=== PATIENT | female | born 1985 | race Caucasian/White ===

== ENCOUNTER → 2022-07-09 09:00 | Outpatient (CLI) | payer BC, SELFPAY ==
--- NOTE | ~2022-07-09 | US_ITS ---
Limited Abdominal Sonogram: Real-time sonographic imaging of the right upper quadrant was performed. Clinical History: Epigastric pain Findings: The liver appears normal with no evidence of mass lesion or bile duct dilatation. Main por edna vein demonstrates normal direction of flow. The gallbladder is partially distended, and contains multiple echogenic gallstones. The common bile duct measures 2 mm. The visualized pancreas, aorta, a nd IVC are unremarkable. Right kidney measures 9.3 cm in length, without evidence for hydronephrosis. Impression: Cholelithiasis. Reviewed, dictated and finalized at location M. Impression: Cholelithiasis.
== END ==
PROVIDERS: PCP Nurse Practitioner Family; Visit Provider Nurse Practitioner Family
DX: K80.20 Calculus of gallbladder without cholecystitis without obstruction (principal)
CPT/HCPCS: 76705

== ENCOUNTER 2022-08-11 00:48 | Day surgery (SDC) | payer BC, SELFPAY ==
[2022-08-10 08:55] VITALS: BMI 30.9
--- NOTE | 2022-08-10 08:58 | PC.NURSE ---
Addendum entered by Cheryl Perdomo RN 08/10/22 09:17: PT AWARE OF HIBICLENS SHOWER AM OF SURGERY Original Note: Report to the Outpatient Waiting Room, entrance under the green pavilion located off [facility], at time _1130 on date _08/11/22 . Planned Procedure Time: _1 :30 PM . Time changes happen often and if your time is changed the preop area will call you the afternoon before. - You and your visitor will be asked to self-screen and do not enter if you have any COVID symptoms. - A mask is optional within the hospital at this time. Patients may have clear liquids (water, carbonated beverages, clear teas, apple juice) until 3 hours prior to surgery (1030 AM) with a maximum of 20 ounces. - No food from midnight until time of surgery - Infants may have breast milk until 4 hours before surgery, infant formula 6 hours prior to surgery. - Children will be allowed to drink immediately following surgery. If applicable, please bring a bottle or sippy cup to assist with drinking. Juice, water, soda, and popsicles are readily available. For infants on formula, please bring formula the day of surgery. Pacifiers are allowed. Take the following medications with a SIP of water the morning of surgery: __SERTRALINE, & ALPRAZOLAM IF NEEDED DO NOT STOP ANY OF YOUR OTHER PRESCRIPTION MEDICATIONS PRIOR TO SURGERY ?EXCEPT THE FOLLOWING Medications to discontinue per physician N/A Date to take last dose Please no make-up, nail macedonian, hairspray, perfume, deodorant, or body powder the day of surgery. No jewelry (including any body piercings) or valuables the day of surgery, leave them at home. Please take a shower or bath the night before, or the morning of, surgery with an antibacterial soap. Wear comfortable, loose fitting clothing. Children are encouraged to wear pajamas. - Jewelry must be removed prior to entering the operating room. Rings and piercings that are not removed may be cut off. - The hospital will not accept responsibility for valuables. - Please leave all valuables, including medications, at home the day of surgery. If you are going home after surgery, a licensed taxi cab driver must drive you home. - NO public transportation without another adult if you receive anesthesia. - We recommend that an adult stay with you for 24 hours following discharge. - We also recommend that you do not drive, make important decision, drink alcoholic beverages, or take any drugs that were not prescribed by your health care provider for at least 24 hours after your discharge time. For Pediatric surgeries, we recommend two adults accompany the child home. Follow any additional instructions given to you from your surgeon. If you or anyone in your household have experienced Covid symptoms in the past week, please notify your surgeon or the nurse liaison at the phone number below for possible testing. Telephone instructions given to ___PATIENT and asked if any additional questions and then verbalized understanding. Patient advised to call surgeon office or pre surgery nurse liaison [phone] if any additional questions.
[2022-08-11] VITALS (12 sets, daily range): BP systolic 104–132; BP diastolic 49–96; PULSE 69–118; RESP 12–20; TEMP 36.2–37.1; O2SAT 97–100
--- NOTE | 2022-08-11 12:34 | WPDHPUPDATE1 ---
History and Physical Update Update Date/Time: 08/11/22 12:34 History and Physical has been reviewed, including an updated exam of the patient. There are NO changes in the patient's condition. Risks, benefits, and alternatives have been discussed and questions answered. Patient agrees to proceed with procedure.
--- NOTE | 2022-08-11 12:38 | P.PNAN_ITS ---
Anes - Initial Pre Proc Eval Procedure: Operation Date: 08/11/22 13:30 Proposed Procedures p Laparoscopic Cholecystectomy - Eldon Tinoco DO Date/Time: 08/11/22 12:38 Surgeon: Eldon Tinoco DO Pre Op Diagnosis: symp cholelithiasis Patient Data Age: 37 Gender: F Height: 1.57 m Weight: 76.81 kg Allergies Allergy/AdvReac Type Severity Reaction Status Date / Time hydromorphone Allergy Intermediate hives Verified 08/10/22 08:44 Home Medications Medication Instructions Recorded Confirmed Type alprazolam 0.25 mg tablet (Xanax) 0.25 mg PO QHS PRN ANEXITY 07/28/22 08/10/22 History semaglutide 0.25 mg or 0.5 mg (2 0.25 mg subcut WEEKLY 07/28/22 08/10/22 History mg/3 mL) subcutaneous pen injector (Ozempic) sertraline 50 mg tablet 50 mg PO DAILY 07/28/22 08/10/22 History Patient hx anesthesia problems: none Family hx anesthesia problems: none Results Review: All pre-operative results and documents have been reviewed as part of the pre- operative evaluation. 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 Informed Consent: The patient's anesthetic plan and its attendant risks and benefits were discussed with the patient/family/POA. Questions were solicited and answers provided to the satisfaction of the patient/family/POA.
[2022-08-11] MEDS: ACETAMINOPHEN 500 MG TABLET 1000 MG PO (12:55)
[2022-08-11] MEDS: KETOROLAC 15 MG/ML VIAL (*BKC) IV PUSH (12:58)
[2022-08-11 13:00] LABS: Alanine Aminotransferase 18 U/L (6-35); Albumin Level 4.8 g/dL (3.5-5.1); Alkaline Phosphatase 61 U/L (38-126); Amylase 67 U/L (30-110); Aspartate Amino Transferase 29 U/L (14-36); Bilirubin,Total 0.7 mg/dL (0.2-1.3); Lipase 77 U/L (23-300)
[2022-08-11] MEDS: LACTATED RINGERS 1,000 ML 30 ML IV CONT ×2 (13:02→14:58)
[2022-08-11] MEDS: ceFAZolin 2 GM/D5W 50 ML 2 GM/50 ML BAG IVPB (13:08)
[2022-08-11] MEDS: BUPIVACAINE/EPINEPHRINE 0.25% 50 ML VIAL 30 ML INFILTRATE (13:35)
--- NOTE | 2022-08-11 14:02 | W.PM.PROC2 ---
Procedure Note - Detailed Date of Procedure 08/11/22 Pre-op Diagnosis symptomatic cholelithiasis Post-op Diagnosis Same Procedure Performed Laparoscopic Cholecystectomy Surgeon Eldon Tinoco, DO Anesthesia General and Local (0.5% bupivacaine) Indications This is a 37-year-old woman who presented with epigastric abdominal pain that started about 1 year ago. She has had several episodes and these are becoming more frequent. She underwent ultrasound which showed evidence of cholelithiasis. Discussions were made with the patient about treatment options and decision was made to proceed with laparoscopic cholecystectomy, possible open. Findings Laparoscopic cholecystectomy was performed. The gallbladder had a few pericholecystic adhesions but was otherwise normal appearing. The cystic duct was normal in size. There were several small to medium-sized gallstones within the gallbladder. The gallbladder was removed and sent to the lab for pathology. No other intra-abdominal abnormalities were noted. Description of Procedure Procedure as well as risks, benefits, and alternatives were discussed with patient. Written consent was obtained and placed in chart prior to procedure. The patient was brought back to surgical suite. Patient was placed in supine position on operating table. Time-out was done to confirm patient and procedure. Patient was then intubated by the anesthesia department. Abdomen was prepped and draped in sterile fashion using chlorhexidine prep. 0.5% bupivacaine with epinephrine was infiltrated at each site of incision. A 5 millimeter incision was made near the umbilicus, and a 5 millimeter Optiview trocar was advanced through the abdominal layers under direct visualization. Once inside the abdominal cavity, carbon dioxide was insufflated to create a pneumoperitoneum. The camera was inserted and the abdomen was inspected. No immediate abnormalities were identified. The patient was placed in reverse Trendelenburg position and rotated slightly to the left. An 11 millimeter incision was made in the subxiphoid region, and an 11 millimeter trocar was inserted under direct visualization. Two 5 millimeter incisions were made in the right upper quadrant, and two 5 millimeter trocars were inserted under direct visualization. The gallbladder was identified and grasped at the fundus and retracted superiorly. It was then grasped at the infundibulum retracted laterally. Careful dissection around the neck of the gallbladder was performed using blunt dissection with a [place] grasper and hook electrocautery. The cystic duct was identified, and a window was created behind it. The cystic artery was also identified and a window was created behind it. The critical view of safety was identified, visualizing the cystic duct running directly into the neck of the gallbladder, and the cystic artery running directly into the wall of the gallbladder. A 5 millimeter clip senior staff specialized employment was then used to place 2 clips proximally and 1 clip distally on both the cystic duct and cystic artery. They were then both transected using endoscopic scissors. Once safely away from the anirudh hepatitis, the gallbladder was dissected free from the liver bed using hook electrocautery. Hemostasis was achieved along the way. The gallbladder was removed completely and then removed through the subxiphoid port. The liver bed was then inspected. Hemostasis appeared adequate, and our clips appeared secure. The area was gently irrigated with sterile saline. No other abnormalities were seen. The patient was flattened out in bed, and 1 final inspection was made around the abdominal cavity. The subxiphoid port was removed, and a Pavan Amelie cone was used to approximate the fascia with an 0-Vicryl simple interrupted suture. The remaining ports were then removed under direct visualization, the camera was removed, and the pneumoperitoneum was released. The skin of the incisions was approxi
[2022-08-11] MEDS: ONDANSETRON INJ 4 MG/2 ML VIAL IV PUSH (14:23)
[2022-08-11] MEDS: fentaNYL CITRATE INJ (*CRX) 100 MCG/2 ML VIAL 25 MCG IV PUSH ×3 (14:30→15:07)
[2022-08-11] MEDS: SCOPOLAMINE 1.5 MG PATCH TRANSDERM (16:03)
[2022-08-11] MEDS: diphenhydrAMINE HCl INJ 50 MG/ML VIAL 25 MG IV PUSH (16:07)
[2022-08-11] MEDS: oxyCODONE HCL (*CRX) 5 MG TAB IR PO (17:03)
== END 2022-08-11 18:00 | disposition home or self-care (01) ==
PROVIDERS: PCP Nurse Practitioner Family; Visit Provider Surgery
PROC: 0FT44ZZ Resection of Gallbladder, Percutaneous Endoscopic Approach (ICD-10-PCS; CPT 47562; principal; 2022-08-11 13:30)
DX: K80.10 Calculus of gallbladder with chronic cholecystitis without obstruction (principal); F41.9 Anxiety disorder, unspecified; Z79.899 Other long term (current) drug therapy; E66.9 Obesity, unspecified; Z68.31 Body mass index [BMI] 31.0-31.9, adult
CPT/HCPCS: 47562; 36415; 80076; 82150; 83690; 86850; 86900; 86901; 88304; A9270; J0690; J1100; J1200; J1885; J2250; J2405; J2704; J2710; J3010; J7030; J7120

== ENCOUNTER 2023-05-03 17:48 | Observation (INO) | payer BC, SELFPAY ==
--- NOTE | 2023-05-03 20:26 | OBADM ---
This patient, Carol Shepard, admitted to the OB room Labor/Delivery/Recovery 106 for observation. Patient/family oriented to hospital policies and general routines including ID bracelet, bed and alarms, visiting hours, pain management, procedures, bathroom and other care routines, personal items, smoking policy, room service/diet, and visiting hours. Patient/Family are encouraged to report perceived risks to care and to ask questions if they do not understand what they are told or what they should do.
--- NOTE | 2023-05-04 07:11 | PM.OBTRLD ---
OB - Triage/Final Diagnosis Visit Information Date of evaluation: 05/03/23 Reason for evaluation: threatened labor Comments/Additional reasons for admission: I have assessed the risk for this patient, Carol Shepard, and determined that she would benefit from observation care.
== END 2023-05-03 20:46 | disposition home or self-care (01) ==
PROVIDERS: Admitting Provider Obstetrics & Gynecology; PCP Nurse Practitioner Family; Visit Provider Obstetrics & Gynecology
DX: O47.1 False labor at or after 37 completed weeks of gestation (principal); Z3A.37 37 weeks gestation of pregnancy
CPT/HCPCS: G0378; G0379

== ENCOUNTER 2023-05-04 09:28 | Outpatient (CLI) | payer BC, SELFPAY ==
[2023-05-04 09:46] VITALS: BP 135/82; PULSE 93
[2023-05-04 09:57] LABS: Basophils Percent Auto 0.2 % (0.2-1.2); Eosinophils Absolute Auto 0.1 K/mm3 (0-0.3); Hemoglobin 9.3 g/dL (12.0-15.0); Immature Granulocyte Absolute 0.06 K/mm3 (0.00-0.031); Immature Granulocyte Percent A 0.5 % (0-0.5); Lymphocytes Absolute Auto 1.79 K/mm3 (0.9-3.2); Lymphocytes Percent Auto 15.7 % (18.3-44.2); Mean Corpuscular Hemoglobin 23.6 pg (26-34); Mean Corpuscular Volume 78.7 fl (80-100); Mean Platelet Volume 10.7 fl (7.4-10.4); Monocytes Absolute Auto 0.8 K/mm3 (0.1-0.6); Monocytes Percent Auto 6.8 % (2.6-8.5); Neutrophils Absolute Auto 8.6 K/mm3 (1.3-6.7); Neutrophils Percent Auto 75.8 % (45.5-73.1); Platelet Count Result 322 k/mm3 (150-375); Red Blood Count 3.94 M/mm3 (4.2-5.4); Red Cell Distribution Width 15.1 % (11.5-14.5); White Blood Count 11.4 K/mm3 (4.5-10.0)
[2023-05-04 10:01] VITALS: BP 126/82; PULSE 82
[2023-05-04 10:07] LABS: Alanine Aminotransferase 14 U/L (6-35); Albumin Level 3.4 g/dL (3.5-5.1); Alkaline Phosphatase 123 U/L (38-126); Anion Gap 5 mmol/L (8-16); Aspartate Amino Transferase 19 U/L (14-36); Bilirubin,Total 0.3 mg/dL (0.2-1.3); Blood Urea Nitrogen 11 mg/dL (7-17); Calcium 9.1 mg/dL (8.4-10.2); Carbon Dioxide 20 mmol/L (22-30); Chloride 110 mmol/L (98-107); Estimated Glomerular Filt Rate > 60; Glucose 89 mg/dL (65-110); Potassium 4.1 mmol/L (3.4-5.0); Sodium 135 mmol/L (137-145); Uric Acid 4.9 mg/dL (2.5-7.5)
[2023-05-04 10:25] VITALS: BP 135/75; PULSE 84
[2023-05-04 10:31] VITALS: BP 130/80; PULSE 87
[2023-05-04 10:49] LABS: Appearance Urine Cloudy (Clear); Bacteria Urine None Seen /hpf; Bilirubin Urine Negative (Negative); Blood Urine Negative (Negative); Color Urine Yellow (Yellow); Glucose Urine UA Negative (Negative); Ketones Urine Trace mg/dL (Negative); Leukocyte Esterase Ur Trace LEU/UL (Negative); Nitrate Urine Negative (Negative); Non Pathogenic Casts 0-2; Protein Urine 1+ mg/dL (Negative); RBC Urine 0-2 /hpf (0-2); Specific Grav Ur 1.022 (1.001-1.035); Squamous Epithelial Cell Urine Occasional /hpf (Few); WBC Urine 0-5 /hpf; pH Urine 6.5 (5.0-9.0)
[2023-05-04 10:53] LABS: Add Urine Microscopic? YES
[2023-05-04 11:22] LABS: Creatinine Urine 213.7 mg/dL; Total Protein Urine Random 28 mg/dL; Ur Ttl Prot Creatinine Ratio 0.13 mg/mg (0-0.20)
--- NOTE | 2023-05-04 11:27 | PC.NURSE ---
Dr Leong notified of lab results.OK to nv home and patient to be scheduled for IOL next wednesday.
--- NOTE | 2023-05-04 11:30 | PC.NURSE ---
Patient informed of IOL for next week, patient very upset and states that she is supposed to be induced for polyhydramnios tomorrow. Patient requesting to talk to Delia Leong. Dr Leong called and clarified orders regarding IOL. Orders for MIL for Poly received for tomorrow at 0400.
[2023-05-04 11:35] VITALS: BP 135/82; PULSE 89
== END 2023-05-04 11:35 | disposition home or self-care (01) ==
LOC: ANHOBOP 09:32 → ANHOBPP 09:32
PROVIDERS: PCP Nurse Practitioner Family; Visit Provider Obstetrics & Gynecology
DX: O13.9 Gestational [pregnancy-induced] hypertension without significant proteinuria, unspecified trimester (principal); O36.8190 Decreased fetal movements, unspecified trimester, not applicable or unspecified; Z3A.00 Weeks of gestation of pregnancy not specified
CPT/HCPCS: 36415; 59025; 80053; 81001; 82570; 84156; 84550; 85025; 99199

== ENCOUNTER 2023-05-05 03:55 | Inpatient (IN) | payer BC, SELFPAY ==
[2023-05-05] VITALS (80 sets, daily range): BP systolic 100–170; BP diastolic 57–109; PULSE 74–115; RESP 16; TEMP 37.2–37.6; O2SAT 94–100; BMI 39.5
--- NOTE | 2023-05-05 04:00 | LDADM ---
This patient, Carol Shepard, was admitted to Labor/Delivery/Recovery 102 on 05/05/23 at 03:55. Plans for labor, pain management and were discussed with patient. Patient/family oriented to hospital policies and general routines including ID bracelet, bed and alarms, visiting hours, pain management, procedures, bathroom and other care routines, personal items, smoking policy, room service/diet and guest tray routines, infant security routines, and visiting hours. Patient/Family are encouraged to report perceived risks to care and to ask questions if they do not understand what they are told or what they should do. See OBIX for further documentation.
--- NOTE | 2023-05-05 06:09 | PM.IMHP ---
H&P: HPI History of Present Illness Date/Time: 05/05/23 06:09 Chief Complaint: Thirty-eight weeks gestation with polyhydramnios Narrative: 37-year-old 3 para 2 last menstrual period puts her at 38 weeks gestation with polyhydramnios. She is advanced cervical dilatation and spontaneous vaginal delivery expected. 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[employer] Spiritual care concerns: No Meds Home Medications and Allergies Home Medications Medication Instructions Recorded Confirmed Type alprazolam 0.25 mg tablet (Xanax) 0.25 mg PO QHS PRN ANEXITY 07/28/22 04/19/23 History sertraline 50 mg tablet 75 mg PO DAILY 07/28/22 04/19/23 History Allergies Allergy/AdvReac Type Severity Reaction Status Date / Time hydromorphone Allergy Intermediate hives Verified 08/28/22 13:40 Pertussis Vaccines Allergy Swelling Verified 04/19/23 12:40 Exam Const: General: cooperative, healthy appearing and comfortable Nutritional Appearance: average body habitus Orientation/consciousness: oriented to person, oriented to place and oriented to time Resp: Effort & Inspection: normal respiratory effort Cardio: Rate: regular rate Rhythm: regular rhythm Heart sounds: S1 normal heart sound present and S2 normal heart sound present GI: Inspection: normal to inspection ( gravid soft uterus) : External Female Exam: normal external appearance Speculum Exam - Vagina: normal appearance of the vagina Speculum Exam - Cervix: normal appearance of the cervix ( cervix 4cm. FHTs reassuring will rupture membrane IV is in) Assessment and Plan Assessment and plan (1) Term : Code(s): Z34.90 - Encounter for supervision of normal , unspecified, unspecified trimester Status: Acute (2) Polyhydramnios: Code(s): O40.9XX0 - Polyhydramnios, unspecified trimester, not applicable or unspecified Status: Acute Plan medical induction of labor. Spontaneous vaginal delivery is expected. She is an epidural candidate
[2023-05-05 06:30] LABS: Basophils Percent Auto 0.3 % (0.2-1.2); Eosinophils Absolute Auto 0.2 K/mm3 (0-0.3); Eosinophils Percent Auto 1.4 % (0-4.4); Hematocrit 32.5 % (37.0-47.0); Hemoglobin 9.8 g/dL (12.0-15.0); Immature Granulocyte Absolute 0.08 K/mm3 (0.00-0.031); Immature Granulocyte Percent A 0.7 % (0-0.5); Lymphocytes Absolute Auto 1.87 K/mm3 (0.9-3.2); Lymphocytes Percent Auto 17.3 % (18.3-44.2); Mean Corpuscular HGB Conc 30.2 g/dl (32-36); Mean Corpuscular Hemoglobin 23.6 pg (26-34); Mean Corpuscular Volume 78.3 fl (80-100); Mean Platelet Volume 10.9 fl (7.4-10.4); Monocytes Absolute Auto 0.6 K/mm3 (0.1-0.6); Monocytes Percent Auto 5.3 % (2.6-8.5); Neutrophils Absolute Auto 8.1 K/mm3 (1.3-6.7); Platelet Count Result 306 k/mm3 (150-375); Red Blood Count 4.15 M/mm3 (4.2-5.4); Red Cell Distribution Width 15.2 % (11.5-14.5); White Blood Count 10.8 K/mm3 (4.5-10.0)
[2023-05-05] MEDS: LACTATED RINGERS 1,000 ML 125 ML IV CONT ×2 (06:33→07:46)
[2023-05-05] MEDS: OXYTOCIN 30 UNITS/NS 500 ML 30 UNITS/500 ML BAG IV CONT (06:33)
--- NOTE | 2023-05-05 06:46 | PM.OBPNLAB ---
Pain Control Date/time seen: 05/05/23 06:46 Pain control: tolerating well Pelvic Exam Dilation (cm): 4 Effacement (%): 80 station: -2 Amniotic membrane status: Ruptured Contractions Monitor mode: Internal
--- NOTE | 2023-05-05 07:09 | WPDANESEPP ---
Anes - Eval Pre Procedure Procedure: Labor epidural Date/Time: 05/05/23 07:09 Surgeon: Sudheer Krishnan Preop Diagnosis: Pain during labor Pre Op Diagnosis: IOL Patient Data Age: 37 Gender: F Height: 1.57 m Weight: 98 kg Last Vital Signs Pulse 98 05/05/23 07:00 BP 135/79 05/05/23 07:00 Allergies Allergy/AdvReac Type Severity Reaction Status Date / Time hydromorphone Allergy Intermediate hives Verified 08/28/22 13:40 Pertussis Vaccines Allergy Swelling Verified 04/19/23 12:40 Home Medications Medication Instructions Recorded Confirmed Type sertraline 50 mg tablet 75 mg PO DAILY 07/28/22 04/19/23 History Laboratory Tests 05/05/23 06:22 WBC 10.8 H K/mm3 (4.5-10.0) RBC 4.15 L M/mm3 (4.2-5.4) Hgb 9.8 L g/dL (12.0-15.0) Hct 32.5 L % (37.0-47.0) MCV 78.3 L fl (80-100) MCH 23.6 L pg (26-34) MCHC 30.2 L g/dl (32-36) RDW 15.2 H % (11.5-14.5) Plt Count 306 k/mm3 (150-375) MPV 10.9 H fl (7.4-10.4) Immature Gran % (Auto) 0.7 H % (0-0.5) Neut % (Auto) 75.0 H % (45.5-73.1) Lymph % (Auto) 17.3 L % (18.3-44.2) [place] % (Auto) 5.3 % (2.6-8.5) Eos % (Auto) 1.4 % (0-4.4) Baso % (Auto) 0.3 % (0.2-1.2) Lymph # (Auto) 1.87 K/mm3 (0.9-3.2) [place] # (Auto) 0.6 K/mm3 (0.1-0.6) Eos # (Auto) 0.2 K/mm3 (0-0.3) Baso # (Auto) 0.0 K/mm3 (0.0-0.1) Abs Immat Gran (auto) 0.08 H K/mm3 (0.00-0.031) Absolute Neuts (auto) 8.1 H K/mm3 (1.3-6.7) Absolute Nucleated RBC 0.000 K/mm3 (0.0-0.012) Nucleated RBC % 0.0 % (0.0-0.2) RPR Pending HIV 1&2 Ab/P24 Ag 4thGn Pending Blood Type A Positive Antibody Screen Pending Patient hx anesthesia problems: none Family hx anesthesia problems: none Results Review: All pre-operative results and documents have been reviewed as part of the pre-operative evaluation. [facility] Past Medical History Medical History Anxiety Surgical History Surgical History History of D&C Hx laparoscopic cholecystectomy 08/11/22 Family History Family History Father Hypertension Mother Lymphoma Grandparent Cerebrovascular accident Social History Social History Smoking status: Never smoker Second hand tobacco smoke exposure: No Alcohol intake: never Substance use: never Substance use type: does not use Do You Feel Safe in your Home?: No Lack of Transportation: No Lack of Food: Never True Current Housing: I Have Housing Concerned About Future Housing: No Difficulty Paying Gas/Electric Bills: No Difficulty Paying for Meds: No Currently Unemployed: No Education: Trade/Vocational Certificate Difficulty w/ Childcare or Family Care: No Living arrangements: with family Occupation/Education: occupation 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
[2023-05-05 07:19] LABS: HIV 1/2 Ab P24 Ag Result Negative (Negative)
--- NOTE | 2023-05-05 10:31 | P.DS_ITS ---
DS: Admitting Diagnosis Discharge Date 05/06/2023 Admitting Diagnosis Term /polyhydramnios DS: Discharge Diagnosis Discharge Diagnosis (1) Polyhydramnios: Code(s): O40.9XX0 - Polyhydramnios, unspecified trimester, not applicable or unspecified Status: Acute (2) Term : Code(s): Z34.90 - Encounter for supervision of normal , unspecified, unspecified trimester Status: Acute DS: Summary Hospital Course Reason for hospitalization: patient was admitted for induction of labor on 05/05/2023 and underwent spontaneous vaginal delivery with epidural anesthesia Hospital Course: her hospital course was unremarkable. She remained afebrile. She was up, voiding without difficulty, eating regular diet, ambulating, generally without complaints. Time Spent with Patient Time attestation: Total time spent providing and/or coordinating discharge services: Exam Const: General: cooperative, healthy appearing and comfortable Nutritional Appearance: average body habitus Orientation/consciousness: oriented to person, oriented to place and oriented to time Resp: Effort & Inspection: normal respiratory effort Cardio: Rate: regular rate Rhythm: regular rhythm Heart sounds: S1 normal heart sound present and S2 normal heart sound present GI: Inspection: normal to inspection ( Fundus firm below umbilicus) DS: Data Data Completed and Pending Labs on day of discharge: Labs from last 24 hours 05/05/23 06:22 WBC 10.8 H RBC 4.15 L Hgb 9.8 L Hct 32.5 L MCV 78.3 L MCH 23.6 L MCHC 30.2 L RDW 15.2 H Plt Count 306 MPV 10.9 H Immature Gran % (Auto) 0.7 H Neut % (Auto) 75.0 H Lymph % (Auto) 17.3 L [place] % (Auto) 5.3 Eos % (Auto) 1.4 Baso % (Auto) 0.3 Lymph # (Auto) 1.87 [place] # (Auto) 0.6 Eos # (Auto) 0.2 Baso # (Auto) 0.0 Abs Immat Gran (auto) 0.08 H Absolute Neuts (auto) 8.1 H Absolute Nucleated RBC 0.000 Nucleated RBC % 0.0 RPR Pending HIV 1&2 Ab/P24 Ag 4thGn Negative Blood Type A Positive Antibody Screen Negative Discharge Plan Discharge Attending physician on discharge: Manjeet Sanchez Discharging Clinician: Manjeet Sanchez Patient Disposition: Home, Self-Care Activity: may shower and no straining Diet: heart healthy Wound Care Instructions: follow printed instructions Patient Instructions: Antibiotic Form Stand Alone Forms: General Discharge Information Follow-up/Referrals: Manjeet Sanchez MD [Physician] - Discharge Medications: No Action sertraline 50 mg tablet 75 mg PO DAILY Date of admission: 05/05/23 03:55 Primary Care Provider: Letty,Kelly Eric Admitting Provider: Manjeet Sanchez Attending physician on admission: Manjeet Sanchez Condition: Stable
--- NOTE | 2023-05-05 10:33 | PM.OBPRVD ---
OB - Vaginal Delivery Note Procedure Delivery date: 05/05/23 Events: Polyhydramnios Induction method: AROM Delivery augmentation: Pitocin Delivery monitor: External FHT and Internal Uterine Episiotomy description: None Laceration Description: Perineal - 1st Degree Quantitative Blood Loss (ml): 61 Anesthesia type: Epidural Disposition: Floor Complications: No immediate complications Baby Date of : 05/05/23 Time of : 10:20 Weeks of gestation at delivery: 38 Infant gender: Male presentation: vertex position: Right Occiput Anterior Placenta delivery description: Spontaneous Cord Vessel Description: 3 Vessels score one minute: 8 score five minutes: 9
[2023-05-05] MEDS: OXYTOCIN 30 UNITS/NS 500 ML 30 UNITS/500 ML BAG 125 UNITS IV CONT (10:57)
[2023-05-05 11:42] LABS: Rapid Plasma Reagin Non-Reactive (NonReactive)
[2023-05-05] MEDS: WITCH HAZEL 40 PADS 1 PAD TOPICAL ×2 (13:06→21:18)
[2023-05-05] MEDS: BENZOCAINE 20% AER SPR (*SP) 56 GM CAN 1 SPRAY TOPICAL (13:07)
--- NOTE | 2023-05-05 15:03 | PC.NURSE ---
Addendum entered by Elena Ash RN 05/05/23 15:11: Reviewed calling for assistance for any concerns. Discussed infants positioning, size, what infants appearance, actions, and sounds when there is difficulty breathing. Parents state infant has been checked out and he is fine. After stooled copious meconium and was placed upright on mothers chest/breast [id number] there was no grunting noise. remained stable with no signs of distress with exception to when he was scrunched up on the boppy. Reported to Primary RN. Original Note: [id number] Upon entering the room big sister is holding on a boppy pillow. Infant is grunting. Repositioned with sister and the infant became quiet, then started making grunting noise again. There is spit at the lips wiped away and is placed upright onto big sister's shoulder and demonstrated how to pat for relief of gas. Introductions were made once patient came out of the restroom, then consulted with patient to assess needs related to . Discussed with mother her?plans to feed?her infant, the?experience so far and she breastfed on both breast downstairs without pain for about 10 minutes on each side. has had two voids and mother states had a smear of stool downstairs. RN LC demonstrated changing a diaper to the family and infant stooled copious amounts of meconium and voided again. (3 voids and copious stool since delivery). Encouraged understanding of the benefits of skin to skin (demonstrating unwrapping infant and placing upright on her chest), stimulating with massage touch, changing positions to encourage wakefulness, how to watch for early feeding cues, responsive feeding, feeding on demand (aiming for 8-12 times in 24 hours, about every 2-3 hours), milk production, building/maintaining a milk supply, duration of feeding, signs of adequate intake/output and how to record on the feeding sheet. mother is experience with . We reviewed the stage of stimulating to wake to feed, responsive feeding, what feeding cues, swallowing looks like with no pain with the latch, and bringing infant close to her body [id number] with a big, open, wide gape. Resources provided for inpatient and outpatient services with the feeding sheet and name written on the communication board. Parents voiced understanding of information and will call if there is a request for assistance. Reported to the Primary RN.
[2023-05-05] MEDS: ACETAMINOPHEN 325 MG TABLET 650 MG PO ×2 (15:07→21:17)
[2023-05-05] MEDS: DOCUSATE SODIUM 100 MG CAPSULE PO (15:07)
[2023-05-05] MEDS: IBUPROFEN 600 MG TABLET PO ×2 (15:07→21:18)
[2023-05-05] MEDS: SIMETHICONE 80 MG TAB.CHEW PO (21:18)
--- NOTE | 2023-05-06 05:41 | P.PNOB_ITS ---
OB - PN: Subj Subjective Date/time seen: 05/06/23 05:41 Patient comments: no complaints and pain well controlled baby status: doing well and nursing well OB - PN: Obj Data Labs 05/05/23 06:22 Labs: Laboratory Results - last 24 hr 05/05/23 06:22 WBC 10.8 H RBC 4.15 L Hgb 9.8 L Hct 32.5 L MCV 78.3 L MCH 23.6 L MCHC 30.2 L RDW 15.2 H Plt Count 306 MPV 10.9 H Immature Gran % (Auto) 0.7 H Neut % (Auto) 75.0 H Lymph % (Auto) 17.3 L [place] % (Auto) 5.3 Eos % (Auto) 1.4 Baso % (Auto) 0.3 Lymph # (Auto) 1.87 [place] # (Auto) 0.6 Eos # (Auto) 0.2 Baso # (Auto) 0.0 Abs Immat Gran (auto) 0.08 H Absolute Neuts (auto) 8.1 H Absolute Nucleated RBC 0.000 Nucleated RBC % 0.0 RPR Non-reactive HIV 1&2 Ab/P24 Ag 4thGn Negative Blood Type A Positive Antibody Screen Negative OB - PN A/P Plan day: 1 Plan: routine care, discharge home and follow up 6 weeks Time Spent With Patient Time: Total time spent is greater than 50% in coordination of care (as documented) at patient's floor/unit and/or counseling patient: Time with patient: less than 15 minutes Exam Const: General: cooperative, healthy appearing and comfortable Nutritional Appearance: average body habitus Orientation/consciousness: oriented to person, oriented to place and oriented to time HENMT: Head: normal to inspection Resp: Effort & Inspection: normal respiratory effort GI: Inspection: normal to inspection
[2023-05-06 05:54] LABS: Hematocrit 28.6 % (37.0-47.0); Hemoglobin 8.5 g/dL (12.0-15.0)
[2023-05-06] MEDS: POLYSACCHARIDE IRON COMPLEX 150 MG CAPSULE PO ×2 (07:13→16:11)
[2023-05-06] MEDS: SIMETHICONE 80 MG TAB.CHEW PO (07:13)
[2023-05-06] MEDS: IBUPROFEN 600 MG TABLET PO ×3 (07:14→22:40)
[2023-05-06] MEDS: DOCUSATE SODIUM 100 MG CAPSULE PO ×2 (07:14→16:11)
[2023-05-06] MEDS: MULTIVIT/MIN/PREN/FOL AC/IRON TABLET 1 TAB PO (07:14)
--- NOTE | 2023-05-06 08:31 | WPDANLDPN2 ---
Anes-Prog Note L&D Date/Time: 05/06/23 08:31 Neuro status: Neuro function grossly intact. Vital Signs: Last Vital Signs Temp 37.3 C 05/05/23 19:13 Pulse 85 05/05/23 19:13 Resp 16 05/05/23 19:13 BP 141/77 H 05/05/23 19:13 Pulse Ox 98 05/05/23 19:13 O2 Del Method Room Air 05/05/23 19:13 Pain score (VAS): 0 Patient feedback: Patient satisfied with anesthetic care.
[2023-05-06 08:40] VITALS: BP 143/76; PULSE 78; RESP 16; TEMP 36.9; O2SAT 100
--- NOTE | 2023-05-06 09:50 | PC.NURSE ---
Discussed protecting milk supply with this patient since was bottle fed throughout the night and she started using a nipple shield. Patient states she plans on only unless she thinks is not satisfied with only.
--- NOTE | 2023-05-06 15:18 | PC.NURSE ---
[id number] Consulted with patient to assess needs related to and mother shared that a nipple shield was initiated last night. Discussed with mother her successes, concerns, any questions she has, and discussed latching and detaching with no maintaining latch at the breast. Mother is confident with her past history. Father of baby encouraged learning. We reviewed working with the infant, supporting breast, protecting her nipples with an optimal deep latch, good positioning, and good hand washing. Reviewed cleaning the nipple shield and the appropriate way to apply and use as a tool. Discussed with mom the nipple shield precautions, possible complications associated with the risks and benefits. Reviewed practicing with a nipple shield, then without and how to protect the milk supply and production. Mom voiced understanding of the importance of hand expression, nipple stimulation and initiating a pumping schedule if infant continues to nurse with the shield. doesn't latch well to the nipple shield, however; it was used twice, then taken off and infant latched to the breast. Encouraged understanding the benefits of skin to skin, responding to feeding cues, frequencies of feeding 8-12 times in 24 hours (approximately 2-3 hours), duration of feedings, milk production, intake/output feeding sheet and signs of adequate intake encouraging swallowing at the breast. Reviewed positioning and alignment, supporting breast, off-centered (asymmetrical latch) and leading with the chin with big, open, wide gape. Infant latched optimally to the left breast in cross cradle position but was on/off on the right breast using football. Education given to the mother of how to visualize the suckling (with good rocking jaw motion) swallows (dropping of the lower jaw) and how to listen for drinking at the breast (the ka sound). We reviewed the risks of early supplementation and educated mother with paced bottle feeding. The infant was able to maintain latch without discomfort to mother. Nipple care reviewed with optimal latch, good positioning and using clean hands when touching her breast. Resources used to facilitate learning were used from the visual handouts/ tool/mom and baby guide. Mother voiced understanding of the education shared, to call for assistance if the infant does not latch or if there is discomfort with . Reported to the Primary RN. [id number] Purposefully rounded to assess for needs. Mother has independently latched infant to the left breast using cross cradle positioning, with rounded cheek line, lips flanged, without the nipple shield, demonstrates good rocking motion with pauses, and mother denies pain. Reminded mother to aim for waking to breastfed 8-10 times a day. Mother is confident as she breastfed her daughter for 20 months years ago and voiced understanding of the education. Reported to the Primary RN.
[2023-05-06 19:00] VITALS: BP 130/77; PULSE 65; RESP 18; TEMP 37; O2SAT 100
--- NOTE | 2023-05-07 06:41 | PM.OBPNVD ---
OB - PN: Subj Subjective Date/time seen: 05/07/23 06:41 Patient comments: no complaints and pain well controlled baby status: doing well and nursing well OB - PN: Obj Data Labs 05/06/23 04:53 OB - PN A/P Plan day: 2 Plan: routine care, discharge home and follow up 6 weeks Time Spent With Patient Time: Total time spent is greater than 50% in coordination of care (as documented) at patient's floor/unit and/or counseling patient: Time with patient: less than 15 minutes Exam Const: General: cooperative, healthy appearing and comfortable Nutritional Appearance: average body habitus Orientation/consciousness: oriented to person, oriented to place and oriented to time Resp: Effort & Inspection: normal respiratory effort Cardio: Rate: regular rate Rhythm: regular rhythm Heart sounds: S1 normal heart sound present and S2 normal heart sound present GI: Inspection: normal to inspection
[2023-05-07 07:45] VITALS: BP 122/68; PULSE 108; RESP 18; TEMP 37.4; O2SAT 100
[2023-05-07] MEDS: POLYSACCHARIDE IRON COMPLEX 150 MG CAPSULE PO (09:31)
[2023-05-07] MEDS: MULTIVIT/MIN/PREN/FOL AC/IRON TABLET 1 TAB PO (09:31)
[2023-05-07] MEDS: DOCUSATE SODIUM 100 MG CAPSULE PO (09:31)
[2023-05-08 11:24] VITALS: BP 125/80; PULSE 92; RESP 18; TEMP 36.6; O2SAT 99
== END 2023-05-07 12:37 | disposition home or self-care (01) | DRG 807 ==
LOC: ANHLDR 10:33 → ANHOB2 14:05
PROVIDERS: Admitting Provider Obstetrics & Gynecology; PCP Nurse Practitioner Family; Visit Provider Obstetrics & Gynecology
DX: O40.3XX0 Polyhydramnios, third trimester, not applicable or unspecified (principal); Z37.0 Single live birth; Z3A.38 38 weeks gestation of pregnancy; O70.0 First degree perineal laceration during delivery
CPT/HCPCS: 36415; 85014; 85018; 85025; 86592; 86703; 86850; 86900; 86901; A9270; G0432; J2590; J2795; J7120